=== PATIENT | male | born 1935 | race Caucasian/White ===

== ENCOUNTER 2019-10-09 05:54 | Emergency (ER) | payer MEDICARE, OTHER ==
[~2019-10-09 05:54] MED LIST: ASPI325T17 PO; CARB200C5; CARB200T13 PO; CLOP75TA52 PO; CYAN100063 PO; DOCU-131 PO; DOXA8TAB; ETOD400T2 PO; GLUC-120 PO; HYDR1TAB13; ONDA4TAB10 PO; OXYC-302 PO; PRIM50TA PO; SIMV10TA18; SIMV40TA20 PO
--- NOTE | 2019-10-09 06:38 | NUR ---
CT PENDING CREATINE.
--- NOTE | 2019-10-09 06:56 | NUR ---
Bedside report received from Nicole JARAMILLO, pt care assumed by Lindsay JARAMILLO and Tho RN at this time. Pt resting in [facility], [facility], denies additional needs at this time. WCTM.
[2019-10-09 07:10] LABS: BASOPHILS # (AUTO) 0.02 x10^3/uL (0-0.1); BASOPHILS % (AUTO) 0 % (0-1); EOSINOPHILS # (AUTO) 0.08 x10^3/uL (0-0.4); EOSINOPHILS % (AUTO) 1 % (1-7); LYMPHOCYTES # (AUTO) 1.19 x10^3/uL (1-3.4); LYMPHOCYTES % (AUTO) 19 % (22-44); MD NO; MEAN CORPUSCULAR HEMOGLOBIN 34.2 pg (27.5-34.5); MEAN CORPUSCULAR HGB CONC 33.4 g/dL (33.2-36.2); MEAN CORPUSCULAR VOLUME 102.2 fL (81-97); MEAN PLATELET VOLUME 9.2 fL (7.4-10.4); MONOCYTES # (AUTO) 0.89 x10^3/uL (0.2-0.8); MONOCYTES % (AUTO) 15 % (2-9); NEUTROPHILS # (AUTO) 3.97 x10^3/uL (1.8-6.8); NEUTROPHILS % (AUTO) 65 % (42-75); PLATELET COUNT 129 x10^3/uL (130-400); RED BLOOD COUNT 4.72 x10^6/uL (4.38-5.82); RED CELL DISTRIBUTION WIDTH 14.2 % (9.4-14.8)
--- NOTE | 2019-10-09 07:15 | NUR ---
Pt given warm blankets for comfort. Resting in gurney. amd family at bedside. WCTM.
[2019-10-09 07:20] LABS: ALANINE AMINOTRANSFERASE 35 U/L (12-78); ALBUMIN 2.8 g/dL (3.4-5.0); ANION GAP 6 mmol/L (5-15); CALCIUM 7.9 mg/dL (8.5-10.1); CHLORIDE 113 mmol/L (98-107)
[2019-10-09 07:22] LABS: ALKALINE PHOSPHATASE 81 U/L (45-117); BILIRUBIN,TOTAL 0.4 mg/dL (0.2-1.0); CREATININE 0.76 mg/dL (0.7-1.3); TOTAL PROTEIN 6.3 g/dL (6.4-8.2)
--- NOTE | 2019-10-09 07:59 | NUR ---
Pt to and from CT in [facility], resting, unlabored and even respirations, NAD, denies additional needs at this time. WCTM. waiting for pt to urination to collect urine sample and for CT report.
[2019-10-09] MEDS ORDERED: OMNIPAQUE 350 MG/ML, 100ML BOTTLE ONE (08:08)
[2019-10-09 08:54] LABS: MICROSCOPIC NOT IND
[2019-10-09 09:01] LABS: CULTURE INDICATED? NO
--- NOTE | 2019-10-09 09:10 | NUR ---
Pt resting in gurney, NAD, even and unlabored respirations. Awaiting recheck. Denies additional needs at this time. WCTM.
--- NOTE | 2019-10-09 09:48 | NUR ---
Pt resting in gurney, xray imaged chest as pt appears to be hiccupping and was concerned. Breathing remains unlabored, pt denies difficulty with breathing. NAD. WCTM.
[2019-10-09 10:45] VITALS: BP 138/80
== END 2019-10-09 10:51 | disposition home or self-care (01) ==
LOC: ED 06:45
DX: R10.31 Right lower quadrant pain (principal); R06.02 Shortness of breath; E78.5 Hyperlipidemia, unspecified; Z86.73 Personal history of transient ischemic attack (TIA), and cerebral infarction without residual deficits
CPT/HCPCS: 36415; 71045; 74177; 80053; 81003; 83690; 85025; 99285; Q9967